=== PATIENT | male | born 1960 | race Caucasian/White ===

== ENCOUNTER 2022-02-14 18:37 | Inpatient (IN) ==
[2022-02-14 21:32] LABS: Bacteria,Urine Few per hpf (None-Few); Basophils % 0.2 %; Bilirubin,Urine Small (Negative); Blood,Urine Negative (Negative); Clarity,Urine Turbid (Clear); Color,Urine Yellow (Yellow); Glucose,Urine (UA) Normal (Normal); Ketones,Urine 40 mg/dL (Negative); Leukocyte Esterase,Urine Negative (Negative); Lymphocytes % 4.4 %; Mucus,Urine Many per lpf (None-Few); Nitrite,Urine Negative (Negative); PH,Urine 5.5 pH Units (5.0-8.0); Protein,Urine 50 mg/dL (Neg-Trace); Specific Gravity,Urine > 1.030 (1.010-1.025); Squamous Epithelial Cell,Urine Few per hpf (None-Few)
[2022-02-14 21:33] LABS: Basophils # 0.1 K/mcL (0.0-0.2); Eosinophils # 7.8 K/mcL (0.0-0.6); Hematocrit 49.3 % (37.5-50.1); Hemoglobin 16.5 g/dL (12.9-16.9); Immature Granulocytes % 0.3 % (0-4); Lymphocytes # 1.2 K/mcL (0.6-4.6); Mean Corpuscular HGB Conc 33.5 g/dL (31.6-35.5); Mean Corpuscular Hemoglobin 32.4 pg (28.0-33.3); Mean Corpuscular Volume 96.9 fL (83.0-100.0); Mean Platelet Volume 10.1 fL (9.4-12.4); Monocytes # 1.2 K/mcL (0.0-1.3); Monocytes % 4.4 %; Neutrophils # 16.5 K/mcL (1.6-8.9); Platelet Count 311 K/mcL (140-400); Red Blood Count 5.09 M/mcL (4.19-5.50); Segmented Neutrophils % 61.7 %; White Blood Count 26.8 K/mcL (4.3-11.1)
[2022-02-14 21:53] LABS: Alanine Aminotransferase 23 Units/L (7-52); Albumin/Globulin Ratio 1.7 (1.1-2.2); Alkaline Phosphatase 80 Units/L (34-104); Aspartate Amino Transferase 21 Units/L (13-39); BUN/Creatinine Ratio 22 (6-26); Bilirubin,Direct 0.2 mg/dL (0.0-0.2); Bilirubin,Indirect 0.9 mg/dL (0.0-1.0); Bilirubin,Total 1.1 mg/dL (0.3-1.0); Blood Urea Nitrogen 17 mg/dL (8-23); Carbon Dioxide 21 mEq/L (23-29); Chloride 103 mEq/L (98-107); Globulin 2.9 g/dL (2.4-3.5); Glucose 128 mg/dL (70-105); Lipase 10 Units/L (11-82); Osmolality,Calculated 285 (280-300); Potassium 3.8 mEq/L (3.5-5.1); Sodium 136 mEq/L (136-145); Total Protein 7.9 g/dL (6.4-8.9)
[2022-02-14 21:55] LABS: Platelet Estimate Normal (Normal)
[2022-02-14] MEDS ORDERED: Morphine Sulfate 2 MG/ML SYRINGE IVP ONE (22:16)
[2022-02-14] MEDS ORDERED: Iopamidol - 370 500 ML MLS IVP ONE (22:17)
[2022-02-14] MEDS ORDERED: 0.9 % Sodium Chloride 1,000 ML IVC ONE (22:17)
[2022-02-14] MEDS ORDERED: Ondansetron 4 MG/2 ML VIAL IVP ONE (22:17)
[2022-02-14] MEDS ORDERED: cefTRIAXone 2,000 MG in 0.9 % Sodium Chloride Mini Bag 100 ML IVPB ONE (22:18)
[2022-02-15] MEDS ORDERED: MetroNIDAZOLE 500 MG/100 ML 500 MG/100 ML BAG IVPB ONE (00:16)
[2022-02-15] MEDS ORDERED: *HR* HYDROmorphone (PF) 1 MG/ML SYRINGE IVP ONE ×2 (00:20→04:00)
[2022-02-15] MEDS ORDERED: Naloxone 0.4 MG/ML INJ IVP PRN ×2 (00:32→20:00)
[2022-02-15] MEDS ORDERED: Ondansetron 4 MG/2 ML VIAL IVP PRN (00:32)
[2022-02-15] MEDS ORDERED: 0.9 % Sodium Chloride 1,000 ML IVC SCH (00:45)
[2022-02-15] MEDS ORDERED: Dextrose Gel 15 GM/37.5 ML TUBE PO PRN ×4 (01:01→20:00)
[2022-02-15] MEDS ORDERED: D5% in Water 1,000 ML IVC PRN ×2 (01:01→20:00)
[2022-02-15] MEDS ORDERED: *HR* Dextrose 50 % in Water (Syg) 50 ML SYRINGE IVP PRN ×2 (01:01→20:00)
[2022-02-15 03:23] LABS: Hematocrit 45.1 % (37.5-50.1); Hemoglobin 15.1 g/dL (12.9-16.9); Mean Corpuscular HGB Conc 33.5 g/dL (31.6-35.5); Mean Corpuscular Hemoglobin 32.8 pg (28.0-33.3); Mean Corpuscular Volume 97.8 fL (83.0-100.0); Mean Platelet Volume 10.8 fL (9.4-12.4); Platelet Count 275 K/mcL (140-400); Red Blood Count 4.61 M/mcL (4.19-5.50); Red Cell Distribution Width 12.3 % (11.5-14.5); White Blood Count 22.5 K/mcL (4.3-11.1)
[2022-02-15 03:27] LABS: INR 1.2; Prothrombin Time 13.1 Seconds (9.4-12.1)
[2022-02-15 03:30] LABS: Activated Partial Thrombo Time 29.3 Seconds (26.0-36.0)
[2022-02-15 03:42] LABS: BUN/Creatinine Ratio 29 (6-26); Blood Urea Nitrogen 17 mg/dL (8-23); Calcium 8.9 mg/dL (8.6-10.3); Carbon Dioxide 22 mEq/L (23-29); Chloride 106 mEq/L (98-107); Glucose 118 mg/dL (70-105); Magnesium 1.8 mg/dL (1.6-2.6); Osmolality,Calculated 287 (280-300); Phosphorous 3.5 mg/dL (2.7-4.5); Potassium 3.9 mEq/L (3.5-5.1); Sodium 137 mEq/L (136-145)
[2022-02-15] MEDS: MetroNIDAZOLE 500 MG/100 ML 500 MG/100 ML BAG IVPB SCH ×2 (07:50→17:34)
[2022-02-15 08:06] LABS: Carcinoembryonic Antigen 2.3 ng/mL (Less than 5.0)
[2022-02-15] MEDS ORDERED: cefTRIAXone 2,000 MG in Water for inj. (sterile) 20 ML IVP SCH (09:00)
[2022-02-15] MEDS ORDERED: Morphine Sulfate 2 MG/ML SYRINGE IVP ONE (10:51)
[2022-02-15] MEDS ORDERED: *HR* Propofol 200 MG/20 ML VIAL IVP ONE (11:00)
[2022-02-15] MEDS ORDERED: *HR* FentaNYL (PF) 100 MCG/2 ML VIAL ONE (11:00)
[2022-02-15] MEDS ORDERED: Lidocaine HCL 4 ML Topical Solution (Laryng-O-Jet Kit Sterile Pak) TP ONE (11:03)
[2022-02-15] MEDS ORDERED: Lidocaine -MPF 2% 2 ML VIAL ONE (11:03)
[2022-02-15] MEDS ORDERED: *HR* Succinylcholine 200 MG/10 ML VIAL IVP ONE (11:03)
[2022-02-15] MEDS ORDERED: *HR* Rocuronium Bromide 50 MG/5 ML VIAL ONE ×2 (11:03→13:53)
[2022-02-15] MEDS ORDERED: Ondansetron 4 MG/2 ML VIAL ONE (11:03)
[2022-02-15] MEDS ORDERED: Famotidine 20 MG/2 ML VIAL ONE (12:17)
[2022-02-15] MEDS ORDERED: *HR* HYDROmorphone PF 0.5 MG/0.5 ML SYRINGE IVP PRN (12:18)
[2022-02-15] MEDS ORDERED: Ketamine HCL *QUVA* 50mg (1mL) SYRINGE ONE (13:04)
[2022-02-15] MEDS ORDERED: *HR* Labetalol 20 MG/4 ML SYRINGE IVP ONE (13:31)
[2022-02-15] MEDS ORDERED: *HR* HYDROMORPHONE 2 MG/ML VIAL ONE (13:59)
[2022-02-15] MEDS ORDERED: Albuterol 2.5 MG/3 ML NEBULIZER ONE (15:36)
[2022-02-15] MEDS ORDERED: Albuterol 2.5 MG/3 ML NEBULIZER IH ONE (15:36)
[2022-02-15] MEDS: 0.9 % Sodium Chloride 1,000 ML IVC SCH (21:10)
[2022-02-15] MEDS: *HR* Heparin 5,000 UNIT/ML VIAL SQ SCH (21:11)
[2022-02-15] MEDS: Piperacillin/Tazobactam 3.375 GM in 0.9 % Sodium Chloride Mini Bag 100 ML IVPB SCH (21:14)
[2022-02-15] MEDS: Ketorolac 30 MG/ML VIAL IVP SCH ×2 (21:15→23:20)
[2022-02-16 02:18] LABS: Hematocrit 36.9 % (37.5-50.1); Mean Corpuscular HGB Conc 33.1 g/dL (31.6-35.5); Mean Corpuscular Hemoglobin 32.4 pg (28.0-33.3); Mean Corpuscular Volume 97.9 fL (83.0-100.0); Mean Platelet Volume 10.5 fL (9.4-12.4); Platelet Count 199 K/mcL (140-400); Red Blood Count 3.77 M/mcL (4.19-5.50); Red Cell Distribution Width 12.6 % (11.5-14.5)
[2022-02-16 02:27] LABS: Hemoglobin 12.2 g/dL (12.9-16.9); White Blood Count 7.8 K/mcL (4.3-11.1)
[2022-02-16 02:44] LABS: BUN/Creatinine Ratio 26 (6-26); Blood Urea Nitrogen 20 mg/dL (8-23); Calcium 7.8 mg/dL (8.6-10.3); Carbon Dioxide 23 mEq/L (23-29); Chloride 108 mEq/L (98-107); Glucose 139 mg/dL (70-105); Magnesium 1.8 mg/dL (1.6-2.6); Osmolality,Calculated 293 (280-300); Phosphorous 2.3 mg/dL (2.7-4.5); Potassium 3.7 mEq/L (3.5-5.1); Sodium 139 mEq/L (136-145)
[2022-02-16] MEDS: 0.9 % Sodium Chloride 1,000 ML IVC SCH ×3 (05:36→20:11)
[2022-02-16] MEDS: Ketorolac 30 MG/ML VIAL IVP SCH ×4 (05:37→23:12)
[2022-02-16] MEDS: *HR* Heparin 5,000 UNIT/ML VIAL SQ SCH ×2 (05:38→17:13)
[2022-02-16] MEDS: Piperacillin/Tazobactam 3.375 GM in 0.9 % Sodium Chloride Mini Bag 100 ML IVPB SCH ×3 (05:42→20:05)
[2022-02-16] MEDS ORDERED: cefTRIAXone 1,000 MG in 0.9 % Sodium Chloride Mini Bag 100 ML IVPB SCH (09:00)
[2022-02-16] MEDS: Pantoprazole 40 MG VIAL IVP SCH (09:02)
[2022-02-16] MEDS: Morphine PCA 30 MG/ 30 ML 30 ML PCA.VIAL IVC PRN ×2 (09:04→17:51)
[2022-02-17] MEDS ORDERED: 0.9 % Sodium Chloride 1,000 ML IVC SCH (01:35)
[2022-02-17] MEDS: Piperacillin/Tazobactam 3.375 GM in 0.9 % Sodium Chloride Mini Bag 100 ML IVPB SCH ×3 (03:18→19:57)
[2022-02-17] MEDS: Ketorolac 30 MG/ML VIAL IVP SCH ×3 (05:10→18:12)
[2022-02-17] MEDS: *HR* Heparin 5,000 UNIT/ML VIAL SQ SCH ×2 (05:10→18:12)
[2022-02-17] MEDS ORDERED: Furosemide 20 MG/2 ML VIAL IVP ONE (07:46)
[2022-02-17] MEDS: Pantoprazole 40 MG VIAL IVP SCH (08:58)
[2022-02-17 11:17] LABS: Hematocrit 32.3 % (37.5-50.1); Mean Corpuscular HGB Conc 32.5 g/dL (31.6-35.5); Mean Corpuscular Hemoglobin 32.2 pg (28.0-33.3); Mean Corpuscular Volume 99.1 fL (83.0-100.0); Mean Platelet Volume 10.9 fL (9.4-12.4); Platelet Count 180 K/mcL (140-400); Red Blood Count 3.26 M/mcL (4.19-5.50); Red Cell Distribution Width 12.5 % (11.5-14.5); White Blood Count 4.4 K/mcL (4.3-11.1)
[2022-02-17 11:20] LABS: Hemoglobin 10.5 g/dL (12.9-16.9)
[2022-02-17 11:29] LABS: BUN/Creatinine Ratio 25 (6-26); Blood Urea Nitrogen 13 mg/dL (8-23); Calcium 7.9 mg/dL (8.6-10.3); Carbon Dioxide 29 mEq/L (23-29); Chloride 106 mEq/L (98-107); Glucose 111 mg/dL (70-105); Osmolality,Calculated 287 (280-300); Phosphorous 1.2 mg/dL (2.7-4.5); Potassium 3.5 mEq/L (3.5-5.1); Sodium 138 mEq/L (136-145)
[2022-02-17] MEDS: Morphine PCA 30 MG/ 30 ML 30 ML PCA.VIAL IVC PRN (14:48)
[2022-02-17] MEDS ORDERED: GuaiFENesin Liq 200 MG/10 ML UDC PO PRN (18:44)
[2022-02-18] MEDS: Piperacillin/Tazobactam 3.375 GM in 0.9 % Sodium Chloride Mini Bag 100 ML IVPB SCH ×3 (04:23→19:51)
[2022-02-18 04:31] LABS: Hemoglobin 10.6 g/dL (12.9-16.9); Mean Corpuscular HGB Conc 32.1 g/dL (31.6-35.5); Mean Corpuscular Hemoglobin 32.1 pg (28.0-33.3); Mean Platelet Volume 10.8 fL (9.4-12.4); Platelet Count 191 K/mcL (140-400); Red Cell Distribution Width 12.1 % (11.5-14.5)
[2022-02-18 04:50] LABS: BUN/Creatinine Ratio 31 (6-26); Blood Urea Nitrogen 14 mg/dL (8-23); Calcium 7.8 mg/dL (8.6-10.3); Carbon Dioxide 26 mEq/L (23-29); Chloride 104 mEq/L (98-107); Glucose 72 mg/dL (70-105); Magnesium 1.9 mg/dL (1.6-2.6); Osmolality,Calculated 285 (280-300); Phosphorous 2.1 mg/dL (2.7-4.5); Potassium 3.3 mEq/L (3.5-5.1); Sodium 138 mEq/L (136-145)
[2022-02-18] MEDS: Ketorolac 30 MG/ML VIAL IVP SCH ×4 (05:38→16:56)
[2022-02-18] MEDS: *HR* Heparin 5,000 UNIT/ML VIAL SQ SCH ×2 (05:47→16:56)
[2022-02-18] MEDS: atenoloL 50 MG TABLET PO SCH (08:40)
[2022-02-18] MEDS: Pantoprazole 40 MG VIAL IVP SCH (08:41)
[2022-02-19] MEDS: Piperacillin/Tazobactam 3.375 GM in 0.9 % Sodium Chloride Mini Bag 100 ML IVPB SCH ×3 (03:44→19:50)
[2022-02-19 04:27] LABS: Hematocrit 34.4 % (37.5-50.1); Hemoglobin 11.4 g/dL (12.9-16.9); Mean Corpuscular HGB Conc 33.1 g/dL (31.6-35.5); Mean Corpuscular Hemoglobin 31.9 pg (28.0-33.3); Mean Corpuscular Volume 96.4 fL (83.0-100.0); Platelet Count 260 K/mcL (140-400); Red Blood Count 3.57 M/mcL (4.19-5.50); Red Cell Distribution Width 11.9 % (11.5-14.5); White Blood Count 6.7 K/mcL (4.3-11.1)
[2022-02-19 04:46] LABS: BUN/Creatinine Ratio 35 (6-26); Blood Urea Nitrogen 18 mg/dL (8-23); Calcium 8.5 mg/dL (8.6-10.3); Carbon Dioxide 29 mEq/L (23-29); Chloride 102 mEq/L (98-107); Glucose 105 mg/dL (70-105); Magnesium 1.9 mg/dL (1.6-2.6); Osmolality,Calculated 286 (280-300); Phosphorous 2.2 mg/dL (2.7-4.5); Potassium 3.7 mEq/L (3.5-5.1); Sodium 137 mEq/L (136-145)
[2022-02-19] MEDS: Morphine PCA 30 MG/ 30 ML 30 ML PCA.VIAL IVC PRN (06:32)
[2022-02-19] MEDS: *HR* Heparin 5,000 UNIT/ML VIAL SQ SCH ×2 (06:39→16:36)
[2022-02-19] MEDS: Ketorolac 30 MG/ML VIAL IVP SCH ×5 (06:39→23:26)
[2022-02-19] MEDS ORDERED: Potassium Phosphate 44 MEQ in 0.9 % Sodium Chloride 250 ML IVPB ONE (08:07)
[2022-02-19] MEDS: Pantoprazole 40 MG VIAL IVP SCH (08:20)
[2022-02-19] MEDS: atenoloL 50 MG TABLET PO SCH (08:21)
[2022-02-19] MEDS: *HR* OxyCODONE Immed Rel 5 MG TABLET PO PRN (15:47)
[2022-02-19] MEDS ORDERED: Metoclopramide 10 MG/10 ML UD.LIQ PO PRN (15:50)
[2022-02-19] MEDS: Metoclopramide 10 MG/2 ML VIAL IVP PRN (16:35)
[2022-02-20] MEDS: *HR* OxyCODONE Immed Rel 5 MG TABLET PO PRN ×2 (01:35→07:58)
[2022-02-20] MEDS: Metoclopramide 10 MG/2 ML VIAL IVP PRN ×2 (01:39→08:01)
[2022-02-20] MEDS: Piperacillin/Tazobactam 3.375 GM in 0.9 % Sodium Chloride Mini Bag 100 ML IVPB SCH ×3 (04:28→20:40)
[2022-02-20 06:16] LABS: Hematocrit 35.7 % (37.5-50.1); Mean Corpuscular HGB Conc 33.6 g/dL (31.6-35.5); Mean Corpuscular Hemoglobin 32.1 pg (28.0-33.3); Mean Corpuscular Volume 95.5 fL (83.0-100.0); Platelet Count 294 K/mcL (140-400); Red Blood Count 3.74 M/mcL (4.19-5.50); White Blood Count 9.3 K/mcL (4.3-11.1)
[2022-02-20] MEDS: Ketorolac 30 MG/ML VIAL IVP SCH ×3 (06:24→17:13)
[2022-02-20] MEDS: *HR* Heparin 5,000 UNIT/ML VIAL SQ SCH ×2 (06:25→17:13)
[2022-02-20 06:34] LABS: BUN/Creatinine Ratio 33 (6-26); Blood Urea Nitrogen 15 mg/dL (8-23); Calcium 8.7 mg/dL (8.6-10.3); Carbon Dioxide 26 mEq/L (23-29); Chloride 101 mEq/L (98-107); Glucose 87 mg/dL (70-105); Magnesium 1.7 mg/dL (1.6-2.6); Osmolality,Calculated 286 (280-300); Phosphorous 4.2 mg/dL (2.7-4.5); Potassium 3.8 mEq/L (3.5-5.1); Sodium 138 mEq/L (136-145)
[2022-02-20] MEDS: atenoloL 50 MG TABLET PO SCH (07:57)
[2022-02-20 21:02] VITALS: O2SAT 90
[2022-02-21 03:51] LABS: Basophils # 0.1 K/mcL (0.0-0.2); Basophils % 0.8 %; Eosinophils # 0.2 K/mcL (0.0-0.6); Eosinophils % 2.1 %; Hematocrit 30.5 % (37.5-50.1); Immature Granulocytes % 3.6 % (0-4); Lymphocytes # 1.7 K/mcL (0.6-4.6); Lymphocytes % 17.3 %; Mean Corpuscular HGB Conc 32.8 g/dL (31.6-35.5); Mean Corpuscular Hemoglobin 31.5 pg (28.0-33.3); Mean Corpuscular Volume 96.2 fL (83.0-100.0); Mean Platelet Volume 10.2 fL (9.4-12.4); Monocytes # 1.4 K/mcL (0.0-1.3); Monocytes % 14.4 %; Neutrophils # 6.1 K/mcL (1.6-8.9); Nucleated Red Blood Cells 0.2 /100 WBC (0); Platelet Count 281 K/mcL (140-400); Red Blood Count 3.17 M/mcL (4.19-5.50); Red Cell Distribution Width 12.2 % (11.5-14.5); Segmented Neutrophils % 61.8 %; White Blood Count 9.8 K/mcL (4.3-11.1)
[2022-02-21] MEDS: Piperacillin/Tazobactam 3.375 GM in 0.9 % Sodium Chloride Mini Bag 100 ML IVPB SCH (04:07)
[2022-02-21 04:11] LABS: BUN/Creatinine Ratio 38 (6-26); Blood Urea Nitrogen 17 mg/dL (8-23); Calcium 8.1 mg/dL (8.6-10.3); Carbon Dioxide 27 mEq/L (23-29); Chloride 103 mEq/L (98-107); Glucose 90 mg/dL (70-105); Magnesium 1.7 mg/dL (1.6-2.6); Osmolality,Calculated 287 (280-300); Phosphorous 3.3 mg/dL (2.7-4.5); Potassium 3.3 mEq/L (3.5-5.1); Sodium 138 mEq/L (136-145)
[2022-02-21] MEDS: *HR* Heparin 5,000 UNIT/ML VIAL SQ SCH (06:43)
[2022-02-21] MEDS: atenoloL 50 MG TABLET PO SCH (08:34)
[2022-02-21] MEDS ORDERED: 0.9 % Sodium Chloride 500 ML ONE (08:41)
[2022-02-21 11:12] VITALS: BP 147/106; PULSE 86; TEMP 97.4
== END 2022-02-21 13:15 | disposition home or self-care (01) | DRG 853 ==
LOC: 3NENU 18:37 → EMEROOARM 18:37 → SUATTDRO 02-15 00:52 → 3NENU 02-15 01:39 → SUATTDRO 02-15 10:01
PROVIDERS: ADMIT Internal Medicine; ATTEND Internal Medicine

== ENCOUNTER 2022-02-22 14:02 | Inpatient (IN) ==
[2022-02-22] MEDS ORDERED: 0.9 % Sodium Chloride 500 ML ONE ×2 (14:23→17:47)
[2022-02-22] MEDS ORDERED: Iopamidol - 370 500 ML MLS IVP ONE (14:46)
[2022-02-22] MEDS ORDERED: Naloxone 0.4 MG/ML INJ IVP PRN (15:06)
[2022-02-22] MEDS ORDERED: Artificial Tears SOLN 15 ML BOTTLE BOTH EYES PRN (15:08)
[2022-02-22 15:12] LABS: Hematocrit 35.8 % (37.5-50.1); Hemoglobin 10.2 g/dL (12.9-16.9); Mean Corpuscular HGB Conc 28.5 g/dL (31.6-35.5); Mean Corpuscular Hemoglobin 30.8 pg (28.0-33.3); Mean Platelet Volume 10.5 fL (9.4-12.4); Platelet Count 262 K/mcL (140-400); Red Blood Count 3.31 M/mcL (4.19-5.50); Red Cell Distribution Width 13.7 % (11.5-14.5)
[2022-02-22 15:15] LABS: White Blood Count 30.3 K/mcL (4.3-11.1)
[2022-02-22] MEDS ORDERED: Pantoprazole 40 MG VIAL IVP SCH (15:15)
[2022-02-22] MEDS ORDERED: Midazolam HCl 50 MG/50 ML IV.SOLN IVC SCH (15:15)
[2022-02-22] MEDS ORDERED: FentaNYL (PF) 1,000 MCG/100 ML IV.SOLN IVC SCH (15:15)
[2022-02-22 15:21] LABS: Mean Corpuscular Volume 108.2 fL (83.0-100.0)
[2022-02-22] MEDS ORDERED: *HR* Metoprolol 5 MG/5 ML VIAL IVP ONE ×3 (15:29→15:42)
[2022-02-22 15:35] LABS: Albumin 2.2 g/dL (3.5-5.7); Albumin/Globulin Ratio 1.3 (1.1-2.2); Bilirubin,Direct 0.1 mg/dL (0.0-0.2); Bilirubin,Indirect 0.3 mg/dL (0.0-1.0); Bilirubin,Total 0.4 mg/dL (0.3-1.0); Calcium 7.7 mg/dL (8.6-10.3); Globulin 1.7 g/dL (2.4-3.5); Potassium 5.5 mEq/L (3.5-5.1); Total Protein 3.9 g/dL (6.4-8.9)
[2022-02-22] MEDS: Norepinephrine 4 MG/254 ML IV.SOLN IVC SCH ×2 (15:40→18:51)
[2022-02-22] MEDS ORDERED: Amiodarone Premix 150 MG/100 ML BAG IVPB ONE ×2 (15:59→16:00)
[2022-02-22] MEDS ORDERED: Phenylephrine 50 MG in 0.9 % Sodium Chloride 250 ML IVC SCH (16:00)
[2022-02-22] MEDS ORDERED: Amiodarone Premix 360 MG/200 ML BAG IVC ONE (16:00)
[2022-02-22] MEDS ORDERED: Piperacillin/Tazobactam 3.375 GM in 0.9 % Sodium Chloride Mini Bag 100 ML IVPB SCH (16:00)
[2022-02-22] MEDS ORDERED: Artificial Tears SOLN 15 ML BOTTLE BOTH EYES SCH (16:00)
[2022-02-22 16:03] LABS: ABG Base Excess -16 mEq/L (-2 to 3); ABG HCO3 15 mEq/L (21-27); ABG Oxygen Saturation 100 % (95-98); ABG PCO2 58 mmHg (35-45); ABG PH 7.01 pH Units (7.32-7.45); ABG PO2 363 mmHg (85-104); ABG TCO2 17 mEq/L (20-26); Blood Gas Modality ASSIST CONTROL; Blood Gas VT 500 cc
[2022-02-22] MEDS ORDERED: Sodium Bicarbonate 150 MEQ in Water for inj. (sterile) 1,000 ML IVC SCH (16:15)
[2022-02-22] MEDS ORDERED: 0.9 % Sodium Chloride 500 ML IVC ONE ×2 (16:20→17:45)
[2022-02-22] MEDS ORDERED: Phenylephrine 100 MG in 0.9 % Sodium Chloride 250 ML IVC SCH (16:30)
[2022-02-22] MEDS ORDERED: Vasopressin 40 UNIT in D5% in Water 100 ML IVC SCH ×3 (16:30)
[2022-02-22] MEDS ORDERED: Hydrocortisone Sodium Succ 100 MG/2 ML VIAL IVP SCH (17:00)
[2022-02-22] MEDS ORDERED: Albumin 25% 25gram/100mL 25 GM/100 ML IV.SOLN IVPB SCH (17:00)
[2022-02-22 17:02] LABS: ABG Base Excess -13 mEq/L (-2 to 3); ABG HCO3 16 mEq/L (21-27); ABG Oxygen Saturation 89 % (95-98); ABG PCO2 58 mmHg (35-45); ABG PH 7.06 pH Units (7.32-7.45); ABG PO2 81 mmHg (85-104); ABG TCO2 18 mEq/L (20-26); Blood Gas Modality ASSIST CONTROL; Blood Gas VT 500 cc
[2022-02-22] MEDS: 0.9 % Sodium Chloride 1,000 ML ONE ×2 (17:09→17:12)
[2022-02-22 17:26] LABS: Troponin I 0.17 ng/mL (< 0.04)
[2022-02-22] MEDS ORDERED: 0.9 % Sodium Chloride 1,000 ML IVC SCH (17:45)
[2022-02-22] MEDS ORDERED: 0.9 % Sodium Chloride 1,000 ML ONE (17:47)
[2022-02-22 18:25] VITALS: BP 76/54; TEMP 96
[2022-02-22 20:38] VITALS: PULSE 125; O2SAT 93
[2022-02-22] MEDS ORDERED: Chlorhexidine Rinse 15 ML MOUTHWASH MM SCH (21:00)
[2022-02-22] MEDS ORDERED: Amiodarone Premix 360 MG/200 ML BAG IVC SCH (22:01)
[2022-02-22] MEDS ORDERED: *HR* EPINEPHrine 1 MG/10 ML SYRINGE IVP ONE (22:39)
[2022-02-23 15:10] LABS: VBG PCO2 80 mmHg (41-51); VBG PH < 6.50 pH Units (7.32-7.42); VBG PO2 186 mmHg (25-50)
[2022-02-26 07:45] LABS: VBG PCO2 66 mmHg (41-51); VBG PH < 6.50 pH Units (7.32-7.42); VBG PO2 211 mmHg (25-50)
== END 2022-02-22 22:40 | disposition expired | DRG 296 ==
LOC: MERGE 14:02 → EMEROOARM 14:02 → ICNU 15:14
PROVIDERS: ADMIT Internal Medicine; ATTEND Internal Medicine